=== PATIENT | male | born 1960 | race Caucasian/White ===

== ENCOUNTER 2019-11-17 07:22 | Day surgery (SDC) | payer OTHER ==
[2019-11-16 10:04] VITALS: BMI 30.7
[2019-11-17] MEDS ORDERED: LIDOCAINE HCL/PF 2% SDV 5ML VIAL ONE (08:06)
[2019-11-17] MEDS ORDERED: PROPOFOL 20 ML ONE ×4 (08:06)
[2019-11-17 09:01] VITALS: TEMP 97.6
[2019-11-17 09:33] VITALS: BP 108/68; PULSE 70
== END 2019-11-17 09:25 | disposition home or self-care (01) ==
LOC: FASU-ENDO 07:22
PROVIDERS: ATTEND Internal Medicine Gastroenterology
PROC: 0DJD8ZZ Inspection of Lower Intestinal Tract, Via Natural or Artificial Opening Endoscopic (ICD-10-PCS; principal; 2019-11-17 08:41)
DX: Z12.11 Encounter for screening for malignant neoplasm of colon (principal); Z80.0 Family history of malignant neoplasm of digestive organs; Z83.71 Family history of colonic polyps